=== PATIENT | male | born 1950 | race Caucasian/White ===

== ENCOUNTER 2024-06-10 11:07 | Emergency (ER) | payer OTHER ==
[2024-06-10] MEDS ORDERED: OXYMETAZOLINE HCL 0.05% 30ML NAS ONE (11:22)
--- NOTE | 2024-06-10 12:07 | EDPHYS ---
Physician Documentation [facility] Name: Christian Cavazos Age: 73 yrs Sex: Male : 1950 Arrival Date: 06/10/2024 Time: 11:07 Bed 2 Private MD: ED Physician Chris Cano HPI: 06/10 13:36 This 73 yrs old Male presents to ER via Ambulatory with complaints of Nose Bleed. rt 13:36 Patient presents to the ED with epistaxis from the right nostril starting 2 hours prior rt to arrival. Denies trauma. States that he has not been able to get the bleeding stopped direct pressure. Denies other acute complaints at this time, symptoms are mild in severity, no other aggravating alleviating factors.. Historical: - Allergies: 11:23 Metoprolol Tartrate; ll1 11:23 BLANCA INHIBITORS; ll1 - PMHx: 11:23 Hypertensive disorder; Diabetes mellitus; Kidney disease; ll1 - PSHx: 11:23 B knee, R hip; ll1 - Immunization history:: Adult Immunizations up to date. - Infectious Disease History:: Denies. - Social history:: Smoking status: Patient/guardian denies using tobacco, the patient reports quitting approximately 2 years ago. - Family history:: not pertinent. ROS: 13:36 Constitutional: Negative for fever, chills, and weight loss, Cardiovascular: Negative rt for chest pain, palpitations, and edema, Respiratory: Negative for shortness of breath, cough, wheezing, and pleuritic chest pain, Abdomen/GI: Negative for abdominal pain, nausea, vomiting, diarrhea, and constipation, 13:36 ENT: Positive for nose bleed, Negative for sinus pain, Exam: 13:36 Constitutional: This is a well developed, well nourished patient who is awake, alert, rt and in no acute distress. Head/Face: Normocephalic, atraumatic. Chest/axilla: Normal chest wall appearance and motion. Nontender with no deformity. No lesions are appreciated. Cardiovascular: Regular rate and rhythm with a normal S1 and S2. No gallops, murmurs, or rubs. Normal PMI, no JVD. No pulse deficits. Respiratory: Lungs have equal breath sounds bilaterally, clear to auscultation and percussion. No rales, rhonchi or wheezes noted. No increased work of breathing, no retractions or nasal flaring. Abdomen/GI: Soft, non-tender, with normal bowel sounds. No distension or tympany. No guarding or rebound. No evidence of tenderness throughout. 13:36 ENT: Swollen nasal turbinates bilaterally, blood noted in the right nare with mild active bleeding. Vital Signs: 11:24 BP 133 / 53; Pulse 76; Resp 16; Temp 97.3; Pulse Ox 100% on R/A; Weight 95.25 kg; ll1 Height 5 ft. 10 in. ; Pain 0/10; 11:24 Body Mass Index 30.13 (95.25 kg, 177.8 cm) ll1 11:24 Pain Scale: Adult ll1 MDM: 11:13 Medical Screening Exam initiated rt 13:36 Differential diagnosis: Spontaneous epistaxis. Data reviewed: vital signs, nurses rt notes. Test considered but Not performed: Labs: Stable vital signs, no symptoms of anemia, labs are not indicated. Counseling: I had a detailed discussion with the patient and/or guardian regarding the historical points, exam findings, and any diagnostic results supporting the discharge/admit diagnosis, the need for outpatient follow up, to return to the emergency department if symptoms worsen or persist or if there are any questions or concerns that arise at home. Response to treatment: the patient's symptoms have resolved after treatment, Bleeding stopped after Afrin, direct pressure. Administered Medications: 11:29 Drug: Oxymetazoline Intranasal Drops (0.05 %) 3 sprays Intranasal once Route: aa5 Intranasal; Site: right nare; Disposition Summary: 06/10/24 12:06 Discharge Ordered Notes: Location: Home rt Problem: new rt Symptoms: have improved rt Condition: Stable rt Diagnosis - Epistaxis rt Followup: rt - With: Private Physician - When: 2 - 3 days - Reason: Discharge Instructions: - Discharge Summary Sheet rt - Nosebleed, Adult rt Forms: - Medication Reconciliation Form rt - Antibiotic Education rt - Prescription Opioid Use rt - Patient Portal Instructions rt - Leadership Thank You Letter rt Signatures: Maria Isabel Booker RN RN aa5 Ab Galeano RN RN bp Lewis, Lynsay, RN RN ll1 Chris Cano MD MD rt
--- NOTE | 2024-06-10 12:07 | ER ---
Nurse's Notes [facility] Name: Christian Cavazos Age: 73 yrs Sex: Male : 1950 Arrival Date: 06/10/2024 Time: 11:07 Bed 2 Private MD: Diagnosis: Epistaxis Presentation: 06/10 11:24 Chief complaint: Patient states: Spontaneous nose bleed. Coronavirus screen: Client ll1 denies travel out of the [place] in the last 14 days. At this time, the client does not indicate any symptoms associated with coronavirus-19. Ebola Screen: Patient denies travel to an Ebola-affected area in the 21 days before illness onset. Initial Sepsis Screen: Does the patient meet any 2 criteria? No. Patient's initial sepsis screen is negative. Does the patient have a suspected source of infection? No. Patient's initial sepsis screen is negative. Risk Assessment: Do you want to hurt yourself or someone else? Patient reports no desire to harm self or others. Onset of symptoms was June 10, 2024. 11:24 Method Of Arrival: Ambulatory [facility] 11:24 Acuity: RYAN 3 ll1 Triage Assessment: 11:25 General: Appears in no apparent distress. comfortable, Behavior is calm, cooperative, bp appropriate for age. Pain: Denies pain. EENT: Nares with bleeding noted on right. Neuro: No deficits noted. Cardiovascular: No deficits noted. Respiratory: No deficits noted. GI: No signs and/or symptoms were reported involving the gastrointestinal system. : No signs and/or symptoms were reported regarding the genitourinary system. Derm: No deficits noted. Musculoskeletal: No deficits noted. Historical: - Allergies: 11:23 Metoprolol Tartrate; ll1 11:23 BLANCA INHIBITORS; ll1 - PMHx: 11:23 Hypertensive disorder; Diabetes mellitus; Kidney disease; ll1 - PSHx: 11:23 B knee, R hip; ll1 - Immunization history:: Adult Immunizations up to date. - Infectious Disease History:: Denies. - Social history:: Smoking status: Patient/guardian denies using tobacco, the patient reports quitting approximately 2 years ago. - Family history:: not pertinent. Screenin:25 [facility] ED Fall Risk Assessment (Adult) History of falling in the last 3 months, bp including since admission No falls in past 3 months (0 pts) Confusion or Disorientation No (0 pts) Intoxicated or Sedated No (0 pts) Impaired Gait No (0 pts) Mobility Assist Device Used No (0 pt) Altered Elimination No (0 pt) Score/Fall Risk Level 0 - 2 = Low Risk Oriented to surroundings. Abuse screen: Denies threats or abuse. Denies injuries from another. Nutritional screening: No deficits noted. Tuberculosis screening: No symptoms or risk factors identified. Assessment: 11:25 General: Appears in no apparent distress. comfortable, Behavior is calm, cooperative, bp appropriate for age. Vital Signs: 11:24 BP 133 / 53; Pulse 76; Resp 16; Temp 97.3; Pulse Ox 100% on R/A; Weight 95.25 kg; ll1 Height 5 ft. 10 in. ; Pain 0/10; 11:24 Body Mass Index 30.13 (95.25 kg, 177.8 cm) ll1 11:24 Pain Scale: Adult ll1 ED Course: 11:07 Patient arrived in ED. mr 11:12 Chris Cano MD is Attending Physician. rt 11:16 Arm band placed on Patient placed in an exam room, on a stretcher. ll1 11:20 Ab Galeano, RN is Primary Nurse. bp 11:25 Triage completed. ll1 11:25 Patient has correct armband on for positive identification. bp 12:24 No provider procedures requiring assistance completed. Patient did not have IV access bp during this emergency room visit. Administered Medications: 11:29 Drug: Oxymetazoline Intranasal Drops (0.05 %) 3 sprays Intranasal once Route: aa5 Intranasal; Site: right nare; Medication: 11:25 VIS not applicable for this client. bp Outcome: 12:06 Discharge ordered by . rt 12:24 Discharged to home ambulatory, with family, bp 12:24 Condition: stable 12:24 Discharge instructions given to patient, Instructed on discharge instructions, follow up and referral plans. Demonstrated understanding of instructions, follow-up care, 12:24 Patient left the ED. bp Signatures: Berkley De La Cruz, Pancho Reg mr Booker, Maria Isabel, ROBYN RN aa5 Ab Galeano RN RN bp Mike Morris RN RN ll1 Chris Cano MD MD rt
[2024-06-11 15:06] VITALS: BP 133/53; TEMP 97.3; O2SAT 100
== END 2024-06-10 12:24 | disposition home or self-care (01) ==
LOC: ER 11:07
DX: R04.0 Epistaxis (principal)
CPT/HCPCS: 99283